=== PATIENT | female | born 1985 | race African-American/Black ===

== ENCOUNTER → 2017-07-26 | Outpatient (CLI) | payer OTHER ==
[~2017-07-26] MED LIST: FLEXERIL PO; FLEXERIL10 MG PO; HYDROCODON-ACE1 EAC7 PO; IBUPROFEN800 MG PO; LOESTRIN FE 1.51 TAB PO; VICODIN 5/1 TAB 5/50 PO
--- NOTE | ~2017-07-26 | MR17 ---
[facility] A Service of [facility] & [facility] RADIOLOGY TEXT RESULTS PATIENT: DESTINI EVANS LOCATION: [facility] : 83 UNIT #: [id number] AGE: [address]: Pablo Le II, MD SEX: F ORDER DR: [id number] [facility] [address] [place], [place] [address] [id number] O MR#: [id number] Acc #: [id number] NAME: DESTINI EVANS : 1985 SEX: F STUDY DATE/TIME: 07/26/2017 8:03 UNIT: [facility] ROOM: STUDY DESCRIPTION: MR Brain WWo Contrast Attending Physician: Pablo Le II., M.D. Referring Physician: Pablo Le II., M.D. Ordering Physician: Pablo Le II., M.D. Primary Care Physician: Tigist Morgan M.D. MRI CENTER REPORT This report is preliminary unless electronic signature is present. EXAM MRI of the brain with and without contrast dated 07/26/2017 COMPARISON None. HISTORY Work related injury in 2004. Heavy box fell on her head in [place], [place]. Chronic headaches, dizziness, memory loss and visual changes 3 years ago. At that time, she did not get hit in the head. FINDINGS Multisequence, multiplanar imaging of the brain was obtained with and without contrast. 15 mL of MultiHance was administered intravenously. No acute stroke, enhancing intracranial mass, mass effect, midline shift or hydrocephalus. Vascular flow voids of the major cerebral arteries and dural venous sinuses are not occluded in these thicker slices. Less than 5 hyperintense T2-signal lesions are noted in the white matter particularly in bifrontal subcortical and periventricular regions. Basal ganglia, brainstem and cerebellar hemispheres are within normal limits. Thick slices through the sella with the pituitary gland, pineal region and upper cervical spine are within normal limits. Postcontrast sequences do not demonstrate enhancing lesions. Nasal septum is deviated to the left. IMPRESSION 1. Nonenhancing scattered few hyperintense T2-signal lesions are noted in bifrontal white matter, likely related to minimal chronic microvascular ischemic change or migraine based on age and statistics. Nonspecific. Other white matter diseases can be considered in the differential consideration. 2. No acute stroke, enhancing lesions, hydrocephalus or midline shift. [facility] A Service of [facility] & [facility] RADIOLOGY TEXT RESULTS PATIENT: DESTINI EVANS LOCATION: [facility] : 83 UNIT #: [id number] AGE: [address]: Pablo Le II, MD SEX: F ORDER DR: Dictated by... Bel Khan M.D. THIS IS AN ELECTRONICALLY VERIFIED REPORT Bel Khan M.D. at 07/26/2017 5:25 PM CPR/mjs TD: 07/26/2017 11:16 JOB #: [id number] MRI CENTER REPORT Page 1 of 1 COPY
== END | disposition home or self-care (01) ==
LOC: CMRI 07-22 16:00
DX: R42 Dizziness and giddiness (principal); R93.0 Abnormal findings on diagnostic imaging of skull and head, not elsewhere classified
CPT/HCPCS: 70553; A9577